=== PATIENT | male | born 1960 | race Caucasian/White ===

== ENCOUNTER 2021-01-13 09:34 | Inpatient (IN) | payer BC, SELFPAY ==
[2021-01-13] VITALS (17 sets, daily range): BP systolic 95–154; BP diastolic 60–97; PULSE 87–125; RESP 12–20; TEMP 36.1–36.8; O2SAT 96–100
--- NOTE | ~2021-01-13 | US_ITS ---
US right upper quadrant INDICATION: Abnormal CT PROCEDURE: Realtime right upper abdominal ultrasound. COMPARISON: No prior studies for comparison. FINDINGS: The pancreas is normal without focal mass or pancreatic ductal dilation. Liver echotexture is increased, consistent with fatty infiltration. There is nodular liver surface, compatible with ci rrhosis. There is a cyst of the left hepatic lobe measuring 1 cm. The right hepatic lobe not well vis ualized. There is normal directional flow in the portal vein. The gallbladder is normal without stones, gallbladder wall thickening or pericholecystic fluid. Comm on bile duct measures 4 mm. No sonographic Isbell's sign. IMPRESSION: 1: Cirrhosis of the liver with fatty infiltration. The hypodense lesion of the right hepatic lobe is not definitely visualized by ultrasound. Consider follow-up MRI. Reviewed, dictated and finalized at location A. IMPRESSION: 1: Cirrhosis of the liver with fatty infiltration. The hypodense lesion of the right hepatic lobe is not definitely visualized by ultrasound. Consider follow- up MRI.
--- NOTE | ~2021-01-13 | CT_ITS ---
EXAMINATION: CT abdomen pelvis w con INDICATION: Generalized abdominal pain, black stools TECHNIQUE: Computed tomographic images of the abdomen and pelvis were obtained after the administrati on of 100 cc of Omnipaque 350 intravenous contrast. The dose-length product (DLP) was 1004.87 mGy-cm. Automated exposure control and iterative reconstruction technique were employed. COMPARISON: None available FINDINGS: Minimal dependent atelectasis is present in the lung bases. The heart size is normal. There is wall thickening in the gastric antrum. The liver surface is nodular. There is a 10 mm cyst of the left hepatic lobe. There is a 7 mm hypoattenuating area of the right hepatic lobe on image 32. There is recanalization of the umbilical vein. Changes of right total hip arthroplasty are noted. The sple en, pancreas, and right adrenal gland are normal. The gallbladder is decompressed. There is a 2.1 cm mass of the left adrenal gland containing macroscopic fat, consistent with a myelolipoma. The kidneys are unremarkable. There is calcified atherosclerosis of the aorta and many of the other arteries. Th ere is mild periportal lymphadenopathy. There is no free intraperitoneal gas or evidence of bowel obs truction. The appendix is normal. IMPRESSION: 1. Wall thickening of the gastric antrum, likely inflammatory. 2. Cirrhosis with portal hypertension. 3. Indeterminate area of low attenuation in the right hepatic lobe which could reflect a cyst however in the presence of the renal disease, follow-up by MRI without and with contrast is recommended if n o prior imaging is available for comparison. Reviewed, dictated and finalized at location A. IMPRESSION: 1. Wall thickening of the gastric antrum, likely inflammatory. 2. Cirrhosis with portal hypertension. 3. Indeterminate area of low attenuation in the right hepatic lobe which could reflect a cyst however in the presence of the renal disease, follow-up by MRI w ithout and with contrast is recommended if no prior imaging is available for co mparison.
[2021-01-13 09:56] LABS: Basophils Percent Auto 0.5 % (0.2-1.2); Eosinophils Absolute Auto 0.3 K/mm3 (0-0.3); Eosinophils Percent Auto 3.1 % (0-4.4); Hematocrit 39.2 % (42.0-52.0); Hemoglobin 13.3 g/dL (14.0-18.0); Immature Granulocyte Absolute 0.05 K/mm3 (0.00-0.031); Immature Granulocyte Percent A 0.6 % (0-0.5); Immature Platelet Fraction Pct 4.9 % (0.9-11.2); Lymphocytes Absolute Auto 2.48 K/mm3 (0.9-3.2); Lymphocytes Percent Auto 28.1 % (18.3-44.2); Mean Corpuscular HGB Conc 33.9 g/dl (32-36); Mean Corpuscular Hemoglobin 31.9 pg (26-34); Mean Platelet Volume 10.5 fl (7.4-10.4); Monocytes Absolute Auto 0.7 K/mm3 (0.1-0.6); Monocytes Percent Auto 8.3 % (2.6-8.5); Neutrophils Absolute Auto 5.2 K/mm3 (1.3-6.7); Neutrophils Percent Auto 59.4 % (45.5-73.1); Platelet Count Result 134 k/mm3 (150-375); Red Blood Count 4.17 M/mm3 (4.6-6.20); Red Cell Distribution Width 12.6 % (11.5-14.5); White Blood Count 8.8 K/mm3 (4.5-10.0)
--- NOTE | 2021-01-13 10:02 | ED.GIBLEED ---
HPI - GI Bleed General Chief complaint: GI Bleed Stated complaint: black stools Time Seen by Provider: 01/13/21 09:36 Source: RN notes reviewed History of Present Illness HPI Narrative: Patient presents to emergency department from home for GI bleed. Patient states he has had 2 episodes of black stool since 1:00 this morning states is associated with generalized abdominal pain described as cramping patient states he does have a history of having bleeding epigastric ulcers before in the past and has been scoped at [facility] he denies any fevers or chills chest pain shortness of breath states he has had nausea but denies any vomiting Related Data Home Medications Medication Instructions Recorded Confirmed doxycycline hyclate 50 mg PO DAILY 01/13/21 01/13/21 guselkumab [Tremfya] See Rx Instructions .ROUTE .COMPLEX 01/13/21 01/13/21 Allergies Allergy/AdvReac Type Severity Reaction Status Date / Time Penicillins Allergy Unknown Unknown Verified 01/13/21 09:43 Review of Systems Review of Systems: Gen.: Denies fevers or chills ENT: Denies congestion Respiratory: Denies shortness of breath or cough CV: Denies chest pain or palpitations GI: See HPI denies burning, urgency, frequency or hematuria Musculoskeletal: Denies back pain or muscle pain Neuro: Denies numbness, tingling, weakness or focal weakness Skin: Denies rash Except as documented, all other systems reviewed and negative [facility] Past Medical History Medical History (Updated 01/13/21 @ 11:36 by Jay Hernandez DO) Gastric ulcer Social History Social History (Updated 01/13/21 @ 10:04 by Jay Hernandez DO) Smoking status: Never smoker Gender identity (if verbalized by the patient): Male Exam Narrative: APPEARANCE: No acute distress, nontoxic, resting in bed HEENT: Normocephalic, atraumatic, OMM RESPIRATORY: No respiratory distress, clear to auscultation bilaterally with no rhonchi wheezing or rales CARDIOVASCULAR: RRR s murmur ABDOMINAL: Soft nondistended diffusely tender to palpation no rebound or guarding Rectal: Large amount of dark black stools is Hemoccult positive MUSCULOSKELETAl: Moves all extremities. No clubbing, cyanosis or edema. NEURO: Awake and alert. Following commands, speech normal, no focal deficits SKIN:: Warm, dry. Normal Color PSYCHIATRIC: Normal affect/mood Course Course Emergency Course: Discussed with patient CT findings discussed cirrhosis states he drinks approximately 6-10 beers a day denies any previous history of cirrhosis Discussed Dr. Liz presentation work-up will take patient to the endoscopy lab this morning Discussed with Dr Elliott presentation work-up agrees with admission at this time to IMU Discussed with patient and family results of workup and diagnosis. Discussed need for admission. Patient and family understand and agree to current treatment plan Vital Signs Vital signs: Vital Signs Temperature 98.2 F 01/13/21 09:39 Pulse Rate 100 01/13/21 09:39 Respiratory Rate 20 01/13/21 09:39 Blood Pressure 154/97 H 01/13/21 09:39 Pulse Oximetry 100 01/13/21 09:39 Temperature 98.2 F 01/13/21 09:39 Pulse Rate 88 01/13/21 11:24 Respiratory Rate 20 01/13/21 11:24 Blood Pressure 132/79 01/13/21 11:24 Pulse Oximetry 100 01/13/21 11:24 MDM - GI Bleed Lab Data Result diagrams: 01/13/21 09:47 01/13/21 09:48 Labs: Lab Results 01/13/21 01/13/21 01/13/21 Range/Units 09:47 09:48 09:48 WBC 8.8 (4.5-10.0) K/mm3 RBC 4.17 L (4.6-6.20) M/mm3 Hgb 13.3 L (14.0-18.0) g/dL Hct 39.2 L (42.0-52.0) % MCV 94.0 (80-100) fl MCH 31.9 (26-34) pg MCHC 33.9 (32-36) g/dl RDW 12.6 (11.5-14.5) % Plt Count 134 L (150-375) k/mm3 MPV 10.5 H (7.4-10.4) fl Immature Gran % (Auto) 0.6 H (0-0.5) % Neut % (Auto) 59.4 (45.5-73.1) % Lymph % (Auto) 28.1 (18.3-44.2) % [place] % (Auto) 8.3 (2.6-8.5)
[2021-01-13] MEDS: SODIUM CHLORIDE 0.9% IV 1,000 ML 1000 ML (10:03)
[2021-01-13 10:07] LABS: INR 1.2; Partial Thromboplastin Time 28.9 SECONDS (22.3-36.8); Prothrombin Time 15.1 Seconds (11.1-14.7)
[2021-01-13 10:11] LABS: Alanine Aminotransferase 43 U/L (4-50); Alkaline Phosphatase 76 U/L (38-126); Anion Gap 12 mmol/L (8-16); Aspartate Amino Transferase 57 U/L (17-59); Bilirubin,Total 1.5 mg/dL (0.2-1.3); Blood Urea Nitrogen 36 mg/dL (9-20); Carbon Dioxide 26 mmol/L (22-30); Chloride 101 mmol/L (98-107); Estimated CRCL calculation 91 ml/min; Estimated Glomerular Filt Rate > 60; Glucose 134 mg/dL (65-110); Lipase 120 U/L (23-300); Potassium 4.4 mmol/L (3.4-5.0); Sodium 139 mmol/L (137-145)
[2021-01-13] MEDS: PANTOPRAZOLE SODIUM IV 40 MG VIAL IV PUSH ×2 (10:28→22:24)
[2021-01-13] MEDS: SODIUM CHLORIDE 0.9% IV 1,000 ML 999 ML IV CONT (10:29)
[2021-01-13 11:25] LABS: Lactic Acid Reflex 1.7 mmol/L (0.7-2.1)
--- NOTE | 2021-01-13 11:54 | SUR.PREOP ---
Patient brought to GI lab from ER. Only belongings with patient include his phone, underwear and socks. Patient states his girlfriend took the rest home with her.
[2021-01-13] MEDS: LACTATED RINGERS 1,000 ML 150 ML IV CONT (11:55)
--- NOTE | 2021-01-13 12:08 | WPDANESEPPF ---
Anes - Initial Pre Proc Eval Procedure: Operation Date: 01/13/21 12:30 Proposed Procedures p Esophagogastroduodenoscopy - Trenton Liz MD Date/Time: 01/13/21 12:08 Surgeon: Joseph Elliott MD Pre Op Diagnosis: GI bleed Patient Data Age: 60 Gender: M Height: 1.83 m Weight: 100 kg Last Vital Signs Temp 36.1 C L 01/13/21 12:02 Pulse 88 01/13/21 12:02 Resp 18 01/13/21 12:02 BP 134/87 01/13/21 12:02 Pulse Ox 99 01/13/21 12:02 Allergies Allergy/AdvReac Type Severity Reaction Status Date / Time Penicillins Allergy Unknown Unknown Verified 01/13/21 11:52 Home Medications Medication Instructions Recorded Confirmed Type doxycycline hyclate 50 mg PO DAILY 01/13/21 01/13/21 History guselkumab [Tremfya] See Rx Instructions .ROUTE .COMPLEX 01/13/21 01/13/21 History Laboratory Tests 01/13/21 01/13/21 01/13/21 09:47 09:48 09:48 WBC 8.8 K/mm3 K/mm3 (4.5-10.0) RBC 4.17 M/mm3 L M/mm3 (4.6-6.20) Hgb 13.3 g/dL L g/dL (14.0-18.0) Hct 39.2 % L % (42.0-52.0) MCV 94.0 fl fl (80-100) MCH 31.9 pg pg (26-34) MCHC 33.9 g/dl g/dl (32-36) RDW 12.6 % % (11.5-14.5) Plt Count 134 k/mm3 L k/mm3 (150-375) MPV 10.5 fl H fl (7.4-10.4) Immature Gran % (Auto) 0.6 % H % (0-0.5) Neut % (Auto) 59.4 % % (45.5-73.1) Lymph % (Auto) 28.1 % % (18.3-44.2) [place] % (Auto) 8.3 % % (2.6-8.5) Eos % (Auto) 3.1 % % (0-4.4) Baso % (Auto) 0.5 % % (0.2-1.2) Lymph # (Auto) 2.48 K/mm3 K/mm3 (0.9-3.2) [place] # (Auto) 0.7 K/mm3 H K/mm3 (0.1-0.6) Eos # (Auto) 0.3 K/mm3 K/mm3 (0-0.3) Baso # (Auto) 0.0 K/mm3 K/mm3 (0.0-0.1) Abs Immat Gran (auto) 0.05 K/mm3 H K/mm3 (0.00-0.031) Absolute Neuts (auto) 5.2 K/mm3 K/mm3 (1.3-6.7) Absolute Nucleated RBC 0.0 K/mm3 K/mm3 (0.0-0.012) Nucleated RBC % 0.0 % % (0.0-0.2) % Immature Plt Fraction 4.9 % % (0.9-11.2) PT 15.1 Seconds H Seconds (11.1-14.7) INR 1.2 APTT 28.9 SECONDS SECONDS (22.3-36.8) Sodium Potassium Chloride Carbon Dioxide Anion Gap BUN Creatinine Estim Creat Clear Calc Estimated GFR Glucose Lactic Acid Calcium Total Bilirubin AST ALT Alkaline Phosphatase Total Protein Albumin Lipase Blood Type A Positive Antibody Screen Negative 01/13/21 01/13/21 09:48 11:04 WBC RBC Hgb Hct MCV MCH MCHC RDW Plt Count MPV Immature Gran % (Auto) Neut % (Auto) Lymph % (Auto) [place] % (Auto) Eos % (Auto) Baso % (Auto) Lymph # (Auto) [place] # (Auto) Eos # (Auto) Baso # (Auto) Abs Immat Gran (auto) Absolute Neuts (auto) Absolute Nucleated RBC Nucleated RBC % % Immature Plt Fraction PT INR APTT Sodium 139 mmol/L mmol/L (137-145) Potassium 4.4 mmol/L mmol/L (3.4-5.0) Chloride 101 mmol/L mmol/L (98-107) Carbon Dioxide 26 mmol/L mmol/L (22-30) Anion Gap 12 mmol/L mmol/L (8-16) BUN 36 mg/dL H mg/dL (9-20) Creatinine 0.80 mg/dL mg/dL (0.7-1.3) Estim Creat Clear Calc 91 ml/min ml/min Estimated GFR > 60 (59 - ) Glucose 134 mg/dL H mg/dL (65-110) Lactic Acid 1.7 mmol/L mmol/L (0.7-2.1) Calcium 10.0 mg/dL mg/dL (8.4-10.2) Total Bilirubin 1.5 mg/dL H mg/dL (0.
--- NOTE | 2021-01-13 12:17 | WPDGICN ---
Assessment and Plan Assessment and plan (1) Melena: Code(s): K92.1 - Melena Status: Acute Assessment and Plan: Patient admitted to the hospital with black melenic stools confirmed to be Hemoccult positive. Current hemoglobin is essentially stable but patient has some orthostatic indices. Plan for IV fluid rehydration. An EGD will be performed. Patient was started on PPI therapy. Nonsteroidal anti-inflammatory agents such as Aleve should be held. Further recommendations will be given after endoscopy. CT scan suggests some thickening of the antrum that will be assessed time of endoscopy. (2) Cirrhosis: Code(s): K74.60 - Unspecified cirrhosis of liver Status: Acute Assessment and Plan: There is reported questionable history of cirrhosis of liver. Patient has rather significant ongoing history of alcohol abuse. Plan to monitor closely. Esophageal varices will be assessed at the time of EGD. Alcohol avoidance of strongly encourage. GI Consult Note Consult date/time: 01/13/21 12:17 HPI: Sergio Cordon is a 60 year old male Presents to the ER this morning with black stools that started last evening. Patient has a history of recent shoulder pain because of significant pain over the last 6 months he is taking quite a bit of Aleve. Patient also admits to rather routine intake of alcohol he drinks several beers a day for an extended period of time period in the past patient has had peptic ulcer disease seen at our hospital in 2010 he was found to have esophagitis and gastric ulcerations. Apparently admitted to [facility] in 2017 with peptic ulcer disease. Because of his ongoing alcohol abuse there has been some suspicion of underlying cirrhosis as well. Family history is noncontributory. Plan is to proceed with EGD. Review of Systems Review of Systems: All systems reviewed & are unremarkable except as noted in HPI and below PMFSH Past Medical History Medical History (Updated 01/13/21 @ 12:20 by Trenton Liz MD) Cirrhosis Gastric ulcer GI bleed Portal hypertension Social History Social History (Updated 01/13/21 @ 10:04 by Jay Hernandez DO) Smoking status: Never smoker Gender identity (if verbalized by the patient): Male Meds Home Medications and Allergies Home Medications Medication Instructions Recorded Confirmed Type doxycycline hyclate 50 mg PO DAILY 01/13/21 01/13/21 History guselkumab [Tremfya] See Rx Instructions .ROUTE .COMPLEX 01/13/21 01/13/21 History Allergies Allergy/AdvReac Type Severity Reaction Status Date / Time Penicillins Allergy Unknown Unknown Verified 01/13/21 11:52 Vital Signs Vital Signs - 24 hr 01/13/21 09:39 01/13/21 09:45 01/13/21 09:47 Temperature 98.2 F Pulse Rate 100 121 H 125 H Respiratory Rate 20 Blood Pressure 154/97 H 116/79 95/67 L Pulse Oximetry 100 01/13/21 10:08 01/13/21 10:30 01/13/21 10:50 Temperature Pulse Rate 102 H 99 97 Respiratory Rate 20 20 20 Blood Pressure 125/81 136/84 132/79 Pulse Oximetry 100 100 100 01/13/21 11:24 01/13/21 12:02 Temperature 96.9 F L Pulse Rate 88 88 Respiratory Rate 20 18 Blood Pressure 132/79 134/87 Pulse Oximetry 100 99 Exam Narrative: Physical exam reveals patient be alert. Vital signs stable. HEENT exam is unremarkable. Patient is anicteric. Lungs are clear to auscultation and percussion. Heart is without murmur or extra sounds. Abdominal exam bowel sounds are present soft nontender with no organomegaly. Digital rectal exam reveals no lesions. Dark heme-positive stools is confirmed. Results Labs CBC & Chem 7: 01/13/21 09:47 01/13/21 09:48 Labs: Short CBC 01/13/21 Range/Units 09:47 WBC 8.8 (4.5-10.0) K/mm3 Hgb 13.3 L (14.0-18.0) g/dL Hct 39.2 L (42.0-52.0) % Plt Count 134 L (150-375) k/mm3 BMP 01/13/21 09:48 Sodium 139 Potassium 4.4 Chloride 101 Carb
[2021-01-13] MEDS: BENZOCAINE (*SP) 60 ML SPRAY CAN (HURRICAINE) 1 SPRAY MUCOUS MEM (12:28)
--- NOTE | 2021-01-13 14:00 | PM.IMHP ---
H&P: HPI History of Present Illness Date/Time: 01/13/21 14:00 Chief Complaint: Dark stools. Narrative: This is a 60-year-old male with history of peptic ulcers and alcohol abuse who presented to the emergency department earlier today from home for evaluation of dark stools which began yesterday. He is now status post EGD per Dr. Liz which showed reflux esophagitis and acute gastric ulcers though no active bleeding was noted at the time of endoscopy. He admits to taking 3 Aleve most mornings due to ongoing pain in his right shoulder, sometimes more. Additionally he typically drinks at least 6 beers most days of the week. He is not having any significant abdominal pain, bloating, or GERD symptoms. He denies hematemesis. He has no known history of cirrhosis however imaging today shows questionable cirrhosis with possible portal hypertension. No varices were noted on EGD today. He has never had signs or symptoms of alcohol withdrawal. No history of seizures. Review of Systems Review of Systems: Twelve systems were reviewed with pertinent positives and negatives as per HPI. He recently fractured his left leg and just got out of the walking boot several days ago. He has some mild swelling of the ankle which has been there since the fracture. No recent cold or flu symptoms. He denies chest pain shortness of breath. He has a cardiac murmur which is known and is being followed by his doctor. No exertional chest pain. Except as documented, all other systems were reviewed and are negative. [facility] Past Medical History Medical History Alcohol abuse Gastric ulcer (01/13/21) GI bleed (01/13/21) Gout Hyperlipidemia Psoriasis Psoriatic arthritis Surgical History Surgical History (Updated 01/13/21 @ 23:14 by Mally Parker PA-C) History of right hip replacement History of shoulder surgery Family History Family History (Updated 01/13/21 @ 23:17 by Mally Parker PA-C) Father Heart disease Mother Breast cancer Diabetes mellitus Social History Social History (Updated 01/13/21 @ 23:16 by Mally Parker PA-C) Social History: The patient lives in [place] with his girlfriend. He has 4 children. Works construction. Smoked about 2 packs of cigarettes a day for 15 years and quit many years ago. Drinks about 6 to 8 beers a day. No illicit substance abuse. Code status: Full code. Meds Home Medications and Allergies Home Medications Medication Instructions Recorded Confirmed Type doxycycline hyclate 50 mg PO DAILY 01/13/21 01/13/21 History guselkumab [Tremfya] 100 mg SUBCUT Q60D 01/13/21 01/13/21 History Allergies Allergy/AdvReac Type Severity Reaction Status Date / Time Penicillins Allergy Severe Anaphylactic Verified 01/13/21 16:57 Shock Vital Signs Vital Signs - 24 hr 01/13/21 09:39 01/13/21 09:45 01/13/21 09:47 Temperature 98.2 F Pulse Rate 100 121 H 125 H Respiratory Rate 20 Blood Pressure 154/97 H 116/79 95/67 L Pulse Oximetry 100 01/13/21 10:08 01/13/21 10:30 01/13/21 10:50 Temperature Pulse Rate 102 H 99 97 Respiratory Rate 20 20 20 Blood Pressure 125/81 136/84 132/79 Pulse Oximetry 100 100 100 01/13/21 11:24 01/13/21 12:02 01/13/21 12:42 Temperature 96.9 F L Pulse Rate 88 88 95 Respiratory Rate 20 18 18 Blood Pressure 132/79 134/87 95/61 L Pulse Oximetry 100 99 96 01/13/21 12:52 01/13/21 13:02 01/13/21 16:00 Temperature 98.3 F Pulse Rate 88 91 106 H Respiratory Rate 20 15 12 Blood Pressure 106/60 125/80 125/72 Pulse Oximetry 98 100 100 Exam Narrative: General: well-developed male lying on his right side in bed no distress. Weight: 100 kg. BMI: 29.9. HEENT: PERRL, EOMI. Sclerae anicteric. Oral mucosa moist. Neck: Supple. No adenopathy. Respiratory: Lungs are clear to auscultation bilaterally. Cardiovascular: Regular rate and rhythm with S1-S2. Systolic murmur at the u
--- NOTE | 2021-01-13 14:00 | ADMGEN ---
This patient, Sergio Cordon, was admitted to IMU Room 211-01. Patient/family oriented to hospital policies and general routines including ID bracelet, bed and alarms, visiting hours, pain management, procedures, bathroom and other care routines, personal items, smoking policy, room service/diet, and visiting hours. Information on how to activate the Rapid Response Team has been discussed. Patient/Family are encouraged to report perceived risks to care and to ask questions if they do not understand what they are told or what they should do.
[2021-01-13 14:14] LABS: Hematocrit 31.7 % (42.0-52.0); Hemoglobin 10.9 g/dL (14.0-18.0)
[2021-01-13 14:39] LABS: Add Urine Microscopic? YES; Appearance Urine Clear (Clear); Bilirubin Urine Negative (Negative); Blood Urine 3+ (Negative); Color Urine Yellow (Yellow); Glucose Urine UA Negative (Negative); Ketones Urine Negative (Negative); Leukocyte Esterase Ur Negative LEU/UL (Negative); Mucus Urine Rare /lpf; Nitrate Urine Negative (Negative); Protein Urine Negative (Negative); Urobilinogen Urine Negative mg/dL (<2.0); WBC Urine 0-3 /hpf
[2021-01-13 14:45] LABS: Magnesium 1.6 mg/dL (1.6-2.3)
[2021-01-13] MEDS: SODIUM CHLORIDE 0.9% IV 1,000 ML 125 ML IV CONT (14:47)
[2021-01-13 15:12] LABS: Specific Grav Ur 1.044 (1.001-1.035)
[2021-01-13 20:15] LABS: Hematocrit 29.2 % (42.0-52.0)
[2021-01-13] MEDS: diphenhydrAMINE HCl INJ 50 MG/ML VIAL 25 MG IV PUSH (22:58)
[2021-01-14] VITALS (12 sets, daily range): BP systolic 107–125; BP diastolic 52–80; PULSE 80–99; RESP 14–21; TEMP 36.1–36.9; O2SAT 100
[2021-01-14] MEDS: SODIUM CHLORIDE 0.9% IV 1,000 ML 125 ML IV CONT ×2 (02:31→09:33)
[2021-01-14 03:08] LABS: Alanine Aminotransferase 27 U/L (4-50); Albumin Level 2.5 g/dL (3.5-5.1); Alkaline Phosphatase 50 U/L (38-126); Anion Gap 6 mmol/L (8-16); Aspartate Amino Transferase 38 U/L (17-59); Bilirubin,Total 0.8 mg/dL (0.2-1.3); Blood Urea Nitrogen 31 mg/dL (9-20); Calcium 8.3 mg/dL (8.4-10.2); Carbon Dioxide 23 mmol/L (22-30); Chloride 106 mmol/L (98-107); Estimated CRCL calculation 91 ml/min; Estimated Glomerular Filt Rate > 60; Glucose 97 mg/dL (65-110); Magnesium 1.6 mg/dL (1.6-2.3); Potassium 3.9 mmol/L (3.4-5.0); Sodium 135 mmol/L (137-145)
[2021-01-14 04:07] LABS: Basophils Percent Auto 0.6 % (0.2-1.2); Eosinophils Absolute Auto 0.1 K/mm3 (0-0.3); Eosinophils Percent Auto 2.6 % (0-4.4); Hematocrit 25.8 % (42.0-52.0); Hemoglobin 8.8 g/dL (14.0-18.0); Immature Granulocyte Absolute 0.03 K/mm3 (0.00-0.031); Immature Granulocyte Percent A 0.6 % (0-0.5); Immature Platelet Fraction Pct 5.3 % (0.9-11.2); Lymphocytes Percent Auto 37.1 % (18.3-44.2); Mean Corpuscular HGB Conc 34.1 g/dl (32-36); Mean Corpuscular Hemoglobin 32.4 pg (26-34); Mean Corpuscular Volume 94.9 fl (80-100); Mean Platelet Volume 11.2 fl (7.4-10.4); Monocytes Absolute Auto 0.4 K/mm3 (0.1-0.6); Monocytes Percent Auto 7.2 % (2.6-8.5); Neutrophils Absolute Auto 2.8 K/mm3 (1.3-6.7); Neutrophils Percent Auto 51.9 % (45.5-73.1); Platelet Count Result 83 k/mm3 (150-375); Red Blood Count 2.72 M/mm3 (4.6-6.20); Red Cell Distribution Width 12.7 % (11.5-14.5); White Blood Count 5.4 K/mm3 (4.5-10.0)
[2021-01-14] MEDS: THERAPEUTIC MULTIVITAMINS/MINERALS TAB (*BKC) 1 TABLET PO (09:23)
[2021-01-14] MEDS: PANTOPRAZOLE SODIUM IV 40 MG VIAL IV PUSH ×2 (09:23→21:01)
[2021-01-14] MEDS: FOLIC ACID 1 MG TABLET PO (09:23)
[2021-01-14] MEDS: DOXYCYCLINE HYCLATE 50 MG CAPSULE PO (09:24)
[2021-01-14] MEDS: THIAMINE HCL 100 MG TABLET PO (09:24)
--- NOTE | 2021-01-14 10:28 | PM.IMPN ---
Progress Note: A&P Assessment and Plan (1) Gastric ulcer: Onset Date: 01/13/21 Code(s): K25.9 - Gastric ulcer, unspecified as acute or chronic, without hemorrhage or perforation Status: Acute Assessment and Plan: Acute gastric ulcer noted on EGD 01/13/[address] Liz. Advance to bland diet. Avoid aspirin and NSAIDs. Protonix twice daily. (2) GI bleed: Onset Date: 01/13/21 Code(s): K92.2 - Gastrointestinal hemorrhage, unspecified Status: Acute Assessment and Plan: Secondary to above. No active bleeding noted at the time of endoscopy. Trend hemoglobin and hematocrit. Drop down to 8.8 today continue to monitor DC IV fluids once he tolerates diet (3) Cirrhosis: Code(s): K74.60 - Unspecified cirrhosis of liver Status: Acute Assessment and Plan: Cirrhosis with evidence of portal hypertension noted on CT of the abdomen and pelvis 01/13/2021. No varices noted on EGD. Will get ultrasound right upper quadrant to further evaluate (4) Alcohol abuse: Code(s): F10.10 - Alcohol abuse, uncomplicated Status: Acute Assessment and Plan: Patient denies ever having signs of symptoms of alcohol withdrawal though will initiate CIWA protocol. Discussed abstinence from alcohol (5) Abnormal CT of the abdomen: Code(s): R93.5 - Abnormal findings on diagnostic imaging of other abdominal regions, including retroperitoneum Status: Acute Assessment and Plan: Indeterminate area of low-attenuation in the right hepatic lobe, could be a cyst. Follow-up MRI with and without contrast recommended if no prior imaging available. Will request records from [facility] to see if he has had prior imaging. Follow-up with the outpatient basis Will get right upper quadrant ultrasound to further evaluate this lesion Subjective Date/time seen: 01/14/21 10:28 Interval history: Patient had 3 more black stool for the EGD. No lightheadedness or dizziness. No hematemesis. Some soreness in his abdomen. Tolerated clear liquids Review of Systems Review of Systems: - CONSTITUTIONAL: Denies weight loss, fever and chills. - HEENT: Denies changes in vision and hearing - RESPIRATORY: Denies SOB and cough. - CV: Denies palpitations and CP. - GI: Reports abdominal pain, denies nausea, vomiting and diarrhea. Reports black stool - : Denies dysuria and urinary frequency. - MSK: Denies myalgia and joint pain. - SKIN: Denies rash and pruritus. - NEUROLOGICAL: Denies headache and syncope. - PSYCHIATRIC: Denies recent changes in mood. Denies anxiety and depression. All systems reviewed & are unremarkable except as noted in HPI and below Exam Narrative: General: well-developed male lying on his right side in bed no distress. HEENT: PERRL, EOMI. Sclerae anicteric. Oral mucosa moist. Neck: Supple. No adenopathy. Respiratory: Lungs are clear to auscultation bilaterally. Cardiovascular: Regular rate and rhythm with S1-S2. Systolic murmur at the upper sternal border. Gastrointestinal: Abdomen is soft, nontender, and nondistended with positive bowel sounds. Skin: Warm and dry. No rash or lesions on limited exam. Extremities: No cyanosis or clubbing. 1+ left calli ankle edema. Negative Dee Dee sign bilaterally. Radial and pedal pulses intact. Neurological: Alert. Cranial nerves 2-12 are grossly intact. No gross focal deficits to casual conversation. Psychiatric: Pleasant and cooperative with normal mood and affect. Judgment and insight intact. Objective Data Vital Signs Vital Signs: Vital Signs - 24 hr 01/13/21 10:30 01/13/21 10:50 01/13/21 11:24 Temperature Pulse Rate 99 97 88 Pulse Rate [Monitor] Respiratory Rate 20 20 20 Blood Pressure 136/84 132/79 132/79 Pulse Oximetry 100 100 100 01/13/21 12:02 01/13/21 12:42 01/13/21 12:52 Temperature 96.9 F L Pulse Rate 88 95 88 Pulse Rate [Monitor] Re
[2021-01-14] MEDS: diphenhydrAMINE HCl INJ 50 MG/ML VIAL 25 MG IV PUSH (21:30)
[2021-01-15] VITALS: BP 102/62; PULSE 85; PULSE 95; RESP 20; TEMP 36.1; O2SAT 99
[2021-01-15 04:00] VITALS: BP 112/69; PULSE 85; PULSE 88; RESP 21; TEMP 37.2; O2SAT 100
[2021-01-15 06:09] LABS: Basophils Percent Auto 0.3 % (0.2-1.2); Eosinophils Absolute Auto 0.1 K/mm3 (0-0.3); Eosinophils Percent Auto 4.4 % (0-4.4); Hematocrit 24.4 % (42.0-52.0); Hemoglobin 8.4 g/dL (14.0-18.0); Immature Granulocyte Absolute 0.02 K/mm3 (0.00-0.031); Immature Granulocyte Percent A 0.6 % (0-0.5); Lymphocytes Absolute Auto 1.19 K/mm3 (0.9-3.2); Lymphocytes Percent Auto 37.7 % (18.3-44.2); Mean Corpuscular HGB Conc 34.4 g/dl (32-36); Mean Corpuscular Hemoglobin 31.9 pg (26-34); Mean Corpuscular Volume 92.8 fl (80-100); Mean Platelet Volume 10.7 fl (7.4-10.4); Monocytes Absolute Auto 0.3 K/mm3 (0.1-0.6); Monocytes Percent Auto 9.2 % (2.6-8.5); Neutrophils Absolute Auto 1.5 K/mm3 (1.3-6.7); Neutrophils Percent Auto 47.8 % (45.5-73.1); Platelet Count Result 56 k/mm3 (150-375); Red Blood Count 2.63 M/mm3 (4.6-6.20); Red Cell Distribution Width 12.5 % (11.5-14.5); White Blood Count 3.2 K/mm3 (4.5-10.0)
[2021-01-15 06:25] LABS: Alanine Aminotransferase 38 U/L (4-50); Albumin Level 2.8 g/dL (3.5-5.1); Alkaline Phosphatase 58 U/L (38-126); Anion Gap 4 mmol/L (8-16); Aspartate Amino Transferase 58 U/L (17-59); Bilirubin,Total 0.7 mg/dL (0.2-1.3); Blood Urea Nitrogen 18 mg/dL (9-20); Calcium 8.2 mg/dL (8.4-10.2); Carbon Dioxide 23 mmol/L (22-30); Chloride 110 mmol/L (98-107); Estimated CRCL calculation 82 ml/min; Estimated Glomerular Filt Rate > 60; Glucose 115 mg/dL (65-110); Potassium 3.9 mmol/L (3.4-5.0); Sodium 137 mmol/L (137-145)
[2021-01-15 08:00] VITALS: PULSE 90
[2021-01-15] MEDS: PANTOPRAZOLE SODIUM IV 40 MG VIAL IV PUSH (09:23)
[2021-01-15] MEDS: FOLIC ACID 1 MG TABLET PO (09:24)
[2021-01-15] MEDS: THIAMINE HCL 100 MG TABLET PO (09:24)
[2021-01-15] MEDS: THERAPEUTIC MULTIVITAMINS/MINERALS TAB (*BKC) 1 TABLET PO (09:25)
[2021-01-15] MEDS: DOXYCYCLINE HYCLATE 50 MG CAPSULE PO (09:25)
[2021-01-15 09:26] VITALS: BP 119/70; PULSE 93; RESP 12; TEMP 36.1; O2SAT 100
[2021-01-15 12:00] VITALS: PULSE 93
[2021-01-15 12:55] VITALS: BP 127/69; PULSE 86; RESP 16; TEMP 36.4; O2SAT 100
--- NOTE | 2021-01-15 13:03 | PM.DS ---
DS: Admitting Diagnosis Admitting Diagnosis GI bleed DS: Discharge Diagnosis Discharge Diagnosis (1) Gastric ulcer: Onset Date: 01/13/21 Code(s): K25.9 - Gastric ulcer, unspecified as acute or chronic, without hemorrhage or perforation Status: Acute Assessment and Plan: Patient is a 60-year-old man with a history of peptic ulcers, alcohol abuse drinking 6-10 alcoholic beverages per night, presented to the emergency room for evaluation of dark stools which began 1 day prior to arrival. Initial vitals showed stable blood pressure 154/97, heart rate 100 beats per minute, otherwise afebrile and normal oxygenation room air. Initial labs showed normocytic anemia with a hemoglobin of 13, hematocrit 39. Slightly low platelet count a 134. PT slightly elevated at 15.1. Normal CMP other than glucose 134, T bili 1.5. urinalysis showing 3+ blood and 6-10 rbc's. Abdominal/ pelvis CT showed wall thickening of the gastric antrum likely inflammatory, liver cirrhosis with portal hypertension and Indeterminate area of low attenuation in the right hepatic lobe which could reflect a cyst however in the presence of the renal disease, follow-up by MRI without and with contrast is recommended if no prior imaging is available for comparison. the patient was admitted into the hospital with acute GI bleeding for serial H&Hs and further monitoring with a GI consultation. Patient had an EGD by Dr. Liz showing reflux esophagitis, acute gastric ulcers with hemorrhage, no active bleeding at time of endoscopy. No esophageal varices were identified. He was continued on PPI 40 mg b.i.d.. Serial H&H showed a decrease in his hemoglobin to 8.4, hematocrit 24% which was 2 days after EGD findings were completed. The patient was still have passing some dark stools, but otherwise it was improving. The patient was not feeling lightheaded, dizzy with any other issues or concerns at this time. Patient states is a new diagnosis of liver cirrhosis. he did have a right upper quadrant ultrasound which showed cirrhosis of the liver with fatty infiltration. He has plans to stop drinking permanently. 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 Will recheck CBC in 4 days and have him follow-up with his primary care provider for further evaluation. Continue to eat a bland diet. Avoid aspirin and NSAIDs. Protonix twice daily. NEEDS FOLLOW UP IMAGING- Indeterminate area of low-attenuation in the right hepatic lobe, could be a cyst. Follow-up MRI with and without contrast recommended if no prior imaging available. The hypodense lesion of the right hepatic lobe is not definitely visualized by ultrasound. Consider MRI follow-up. Patient also noted to have a murmur. patient states he had echocardiogram in 2003 we presented to the ER with chest pain. He has had multiple people tell him he has had a murmur in the past, but has not had any repeat imaging with an echocardiogram. The patient's primary care provider recently retired so he has to see a new one. I believe he needs a repeat echo within the next few weeks for further evaluation of his heart murmur. (2) GI bleed: Onset Date: 01/13/21 Code(s): K92.2 - Gastrointestinal hemorrhage, unspecified Status: Acute Assessment and Plan: (3) Cirrhosis: Code(s): K74.60 - Unspecified cirrhosis of liver Status: Acute (4) Alcohol abuse: Code(s): F10.10 - Alcohol abuse, uncomplicated Status: Acute Assessment and Plan: Patient denies ever having signs of symptoms of alcohol withdrawal though will initiate CIWA protocol. Discussed abstinence from alcohol (5) Abnormal CT of the abdomen: Code(s): R93.5 - Abnormal findings on diagnostic imaging of other abdominal regions, including retroperitoneum
== END 2021-01-15 14:51 | disposition home or self-care (01) | DRG 378 ==
LOC: ANHED 11:13 → ANHIMU 11:30 → ANH2MED 01-15 08:35 → ANHIMU 01-17 15:09
PROVIDERS: Internal Medicine; Internal Medicine Gastroenterology; Physician Assistant; Admitting Provider Internal Medicine; Emergency Provider Emergency Medicine; Visit Provider Physician Assistant
PROC: 0DJ08ZZ Inspection of Upper Intestinal Tract, Via Natural or Artificial Opening Endoscopic (ICD-10-PCS; CPT 43235; principal; 2021-01-13 12:30)
DX: K25.0 Acute gastric ulcer with hemorrhage (principal); K76.6 Portal hypertension; K74.60 Unspecified cirrhosis of liver; K21.00 Gastro-esophageal reflux disease with esophagitis, without bleeding; R01.1 Cardiac murmur, unspecified; Z79.899 Other long term (current) drug therapy
CPT/HCPCS: 36415; 74177; 76705; 80053; 81001; 83605; 83690; 83735; 85014; 85018; 85025; 85055; 85610; 85730; 86850; 86900; 86901; 87081; 96361; 96365; 96375; 96376; 99285; A9270; C9113; G0378; J0131; J1200; J7030; J7120; Q9967

== ENCOUNTER 2021-08-02 08:54 | Outpatient (CLI) | payer OTHER, BC, SELFPAY ==
--- NOTE | 2021-08-02 | ECG_ITS ---
Measurements Intervals [place] Rate: 80 P: 52 TX: 174 QRS: 16 QRSD: 101 T: 10 QT: 385 QTc: 446 Interpretive Statements SINUS RHYTHM NORMAL ECG Electronically Signed On 08-02-2021 10:44:26 [employer]LEXIBLE NANNY by Julio Jorge D.O.
[2021-08-02 09:35] LABS: Alanine Aminotransferase 22 U/L (4-50); Albumin Level 4.3 g/dL (3.5-5.1); Alkaline Phosphatase 82 U/L (38-126); Anion Gap 8 mmol/L (8-16); Aspartate Amino Transferase 32 U/L (17-59); Bilirubin,Total 0.7 mg/dL (0.2-1.3); Blood Urea Nitrogen 13 mg/dL (9-20); Calcium 8.9 mg/dL (8.4-10.2); Carbon Dioxide 27 mmol/L (22-30); Chloride 105 mmol/L (98-107); Estimated Glomerular Filt Rate > 60; Glucose 113 mg/dL (65-110); Potassium 4.2 mmol/L (3.4-5.0); Sodium 140 mmol/L (137-145)
[2021-08-02 09:43] LABS: Basophils Percent Auto 0.5 % (0.2-1.2); Eosinophils Absolute Auto 0.2 K/mm3 (0-0.3); Eosinophils Percent Auto 3.9 % (0-4.4); Hematocrit 35.4 % (42.0-52.0); Hemoglobin 12.3 g/dL (14.0-18.0); Immature Granulocyte Absolute 0.02 K/mm3 (0.00-0.031); Immature Granulocyte Percent A 0.3 % (0-0.5); Immature Platelet Fraction Pct 5.1 % (0.9-11.2); Lymphocytes Absolute Auto 2.09 K/mm3 (0.9-3.2); Mean Corpuscular HGB Conc 34.7 g/dl (32-36); Mean Corpuscular Hemoglobin 29.6 pg (26-34); Mean Corpuscular Volume 85.1 fl (80-100); Mean Platelet Volume 10.6 fl (7.4-10.4); Monocytes Absolute Auto 0.6 K/mm3 (0.1-0.6); Monocytes Percent Auto 9.3 % (2.6-8.5); Neutrophils Absolute Auto 3.2 K/mm3 (1.3-6.7); Platelet Count Result 113 k/mm3 (150-375); Red Blood Count 4.16 M/mm3 (4.6-6.20); Red Cell Distribution Width 13.2 % (11.5-14.5); White Blood Count 6.2 K/mm3 (4.5-10.0)
== END 2021-08-02 08:55 | disposition home or self-care (01) ==
PROVIDERS: PCP Family Medicine Sports Medicine; Visit Provider Family Medicine Sports Medicine
DX: Z01.818 Encounter for other preprocedural examination (principal); S42.409A Unspecified fracture of lower end of unspecified humerus, initial encounter for closed fracture
CPT/HCPCS: 36415; 80053; 85025; 85055; 93005

== ENCOUNTER 2022-08-25 07:25 | Emergency (ER) | payer BC, SELFPAY ==
[2022-08-25 07:31] VITALS: BP 123/85; PULSE 99; RESP 18; TEMP 36.8; O2SAT 98
[2022-08-25 07:44] VITALS: BP 132/90; PULSE 103; RESP 20; TEMP 36.9; O2SAT 99
[2022-08-25] MEDS: KETOROLAC (*BKC) 60 MG/2 ML VIAL IM (08:04)
--- NOTE | 2022-08-25 08:13 | ED.LOWEXIN ---
HPI - Extremity Injury (Lower) General Chief Complaint: Extremity Injury, Lower Stated Complaint: Lft foot pain/Gout Time Seen by Provider: 08/25/22 07:27 Source: patient Mode of arrival: ambulatory Limitations: no limitations History of Present Illness HPI Narrative: this is a 62 year gentleman presents with left ankle pain swelling with no injuries the ankle is warm to touch red painful and swollen with decreased range of motion secondary to pain and inflammation. There is no calf pain or tenderness no calf swelling. 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 Currently no fever chills no injuries to the [place] the leg or foot or ankle. Onset (ago): day(s) Injury: Left: ankle ( swelling warm and tender to touch) Related Data Home Medications Medication Instructions Recorded Confirmed doxycycline hyclate 50 mg 50 mg PO DAILY 01/13/21 01/13/21 tablet,delayed release guselkumab 100 mg/mL subcutaneous 100 mg subcut Q60D 01/13/21 01/13/21 auto-injector (Tremfya) Allergies Allergy/AdvReac Type Severity Reaction Status Date / Time Penicillins Allergy Severe Anaphylactic Verified 01/13/21 16:57 Shock Review of Systems Review of Systems: All systems reviewed & are unremarkable except as noted in HPI and below PMFSH Past Medical History Medical History Alcohol abuse Gastric ulcer (01/13/21) GI bleed (01/13/21) Gout Hyperlipidemia Psoriasis Psoriatic arthritis Surgical History Surgical History History of right hip replacement History of shoulder surgery Family History Family History Father Heart disease Mother Breast cancer Diabetes mellitus Social History Social History Social History: The patient lives in [place] with his girlfriend. He has 4 children. Works construction. Smoked about 2 packs of cigarettes a day for 15 years and quit many years ago. Drinks about 6 to 8 beers a day. No illicit substance abuse. Code status: Full code. Exam Const: General: healthy appearing Nutritional Appearance: well nourished Limitations: no limitations HENMT: Head: normal to inspection Eyes: Conjunctivae: conjunctivae normal Pupils: Equal, round and reactive pupils present EOM: EOMs intact bilaterally Direct Ophthalmoscopy: no photophobia Neck: Neck: normal visual inspection Chest: Chest palpation & inspection: normal inspection of the chest Resp: Effort & Inspection: normal respiratory effort Cardio: Rate: regular rate Rhythm: regular rhythm GI: GI Palp: Yes Soft to palpation Auscultation: normal bowel sounds Urinary Catheter: Urinary Catheter: patent and draining Back/Spine/Pelvis: Back: no CVA tenderness Skin: Other: Warm red and swollen left ankle Neuro: General: patient oriented x3 Cranial nerves: Yes Nystagmus not present Speech: normal speech Extrem: General: normal to inspection Psych: Mental Status: mental status grossly normal Affect: normal affect Attitude: cooperative Course Course Emergency Course: patient received a dose of IM Toradol 60mg, and medication was sent to his pharmacy for a gouty flare. Vital Signs Vital signs: Vital Signs Temperature 36.8 C 08/25/22 07:31 Pulse Rate 99 08/25/22 07:31 Respiratory Rate 18 08/25/22 07:31 Blood Pressure 123/85 08/25/22 07:31 Pulse Oximetry 98 08/25/22 07:31 Oxygen Delivery Room Air 08/25/22 07:31 Temperature 36.9 C 08/25/22 07:44 Pulse Rate 103 H 08/25/22 07:44 Respiratory Rate 20 08/25/22 07:44 Blood Pressure 132/90 08/25/22 07:44 Pulse Oximetry 99 08/25/22 07:44 Oxygen Delivery Room Air 08/25/22 07:44 Critical Care Time Critical Care Time Critical Care Time: No Discharge Plan Discharg
[2022-08-25 08:39] VITALS: BP 128/89; PULSE 83; RESP 20; TEMP 36.7; O2SAT 97
== END 2022-08-25 08:42 | disposition home or self-care (01) ==
PROVIDERS: Emergency Provider Emergency Medicine; PCP Family Medicine Sports Medicine
DX: M10.9 Gout, unspecified (principal); T56.0X1D Toxic effect of lead and its compounds, accidental (unintentional), subsequent encounter; E78.5 Hyperlipidemia, unspecified; Z87.891 Personal history of nicotine dependence
CPT/HCPCS: 96372; 99283; J1885

== ENCOUNTER 2023-07-17 08:12 | Outpatient (CLI) | payer BC, MEDICARE, SELFPAY ==
--- NOTE | ~2023-07-17 | US_ITS ---
EXAMINATION: US aorta DATE: 07/17/2023 09:01 INDICATION: Abdominal aortic aneurysm screening, current smoker TECHNIQUE: Grayscale, color Doppler, and pulsed Doppler images of the aorta and common iliac arteries were obtained. COMPARISON: None. FINDINGS: Maximum vascular dimensions are as follows: Proximal aorta: 2.9 cm Mid aorta: 2.7 cm Distal aorta: 2.6 cm Right common iliac artery: 1.6 cm Left common iliac artery: 1.3 cm There is no evidence of abdominal aortic aneurysm. IMPRESSION: 1. No sonographic evidence of abdominal aortic aneurysm. Reviewed, dictated and finalized at location B. [employer]ETAKER
--- NOTE | ~2023-07-17 | CT_ITS ---
CT Scan of the Chest without Contrast: Clinical Indication: Pulmonary nodule Technique: Contiguous sections were acquired throughout the chest without intravenous contrast. Dose reduction technique was used on this scan by utilizing automated exposure control and iterative recon struction technique. The dose-length product (DLP) was 164.32 mGy-cm. Findings: There is no evidence of any significant mediastinal, hilar or axillary lymphadenopathy. Small calcifi ed ACL another present. The mediastinal soft tissues appear normal. There is no evidence of pleural or pericardial effusion. 2 mm upper lobe pulmonary nodule present. 3 mm left basilar pulmonary nodule present. Calcified left upper lobe granuloma present. Images through the upper abdomen reveal nodular liver, compatible cirrhosis. Impression: Lung RADS 2-S: Benign appearance. 12 month follow-up screening CT advised. Cirrhotic liver. Reviewed, dictated and finalized at [facility]. [employer] ADVISORY TEAM WATCH OFFICER Impression: Lung RADS 2-S: Benign appearance. 12 month follow-up screening CT advised. Cirrhotic liver.
== END 2023-07-17 08:13 | disposition home or self-care (01) ==
PROVIDERS: PCP Emergency Medicine; Visit Provider Emergency Medicine
DX: R91.1 Solitary pulmonary nodule (principal); I71.40 Abdominal aortic aneurysm, without rupture, unspecified; K74.60 Unspecified cirrhosis of liver
CPT/HCPCS: 71250; 76775

== ENCOUNTER 2023-11-05 09:13 | Outpatient (CLI) | payer MEDICARE, BC, SELFPAY ==
--- NOTE | ~2023-11-05 | US_ITS ---
EXAMINATION: US art doppler w press LE BI DATE: 11/05/2023 10:36 INDICATION: Peripheral vascular disease, unspecified. TECHNIQUE: Segmental pressures and plethysmographic and Doppler waveforms of the brachial and lower e xtremity arteries were obtained. COMPARISON: None. FINDINGS: Right and left brachial artery pressures of 113 mm Hg and 130 mm Hg, respectively, are concordant (no rmal difference <= 30 mmHg). The right high-thigh pressure index is 1.22 (normal > 1.2). The right ankle-brachial index (MIKE) is 1 .14 (normal >= 0.9-1.0). The right great toe-brachial index (TBI) is 0.71 (normal >= 0.65). Arterial Doppler waveforms are at least triphasic in common femoral artery and superficial femoral artery, bi phasic in popliteal artery, and at least triphasic at the ankle. The left high-thigh pressure index is 1.32. The left MIKE is 1.20. The left TBI is 0.70. Arterial Dopp ler waveforms are monophasic in common femoral artery, biphasic in superficial femoral artery and pop liteal artery, and at least triphasic at the ankle. IMPRESSION: 1. No significant arterial occlusive disease. Reviewed, dictated and finalized at location A.
== END 2023-11-05 09:14 | disposition home or self-care (01) ==
PROVIDERS: PCP Emergency Medicine; Visit Provider Emergency Medicine
DX: I82.403 Acute embolism and thrombosis of unspecified deep veins of lower extremity, bilateral (principal); I73.9 Peripheral vascular disease, unspecified
CPT/HCPCS: 93923